=== PATIENT | male | born 1980 | race Caucasian/White ===

== ENCOUNTER 2018-02-09 06:19 | Day surgery (SDC) | payer OTHER ==
[2018-02-09] MEDS ORDERED: MIDAZOLAM 1 MG/ML 2 ML INJ (07:21)
[2018-02-09] MEDS ORDERED: LIDOCAINE 2% (SDV) 5 ML INJ (07:21)
[2018-02-09] MEDS ORDERED: PROPOFOL 40 ML (07:21)
== END 2018-02-09 10:33 | disposition home or self-care (01) ==
LOC: GIL 06:19
DX: Z12.11 Encounter for screening for malignant neoplasm of colon (principal); K64.8 Other hemorrhoids; I10 Essential (primary) hypertension; E78.5 Hyperlipidemia, unspecified
CPT/HCPCS: 45378